=== PATIENT | male | born 1950 | race Caucasian/White ===

== ENCOUNTER → 2024-02-06 06:22 | Day surgery (SDC) | payer MEDICARE, SELFPAY | LOC: GI 06:22 | PROVIDERS: ATTENDING PHYSICIAN Internal Medicine Gastroenterology; FAMILY PHYSICIAN Internal Medicine | DX: Z12.11 Encounter for screening for malignant neoplasm of colon (principal); K57.30 Diverticulosis of large intestine without perforation or abscess without bleeding; K64.8 Other hemorrhoids; Z80.0 Family history of malignant neoplasm of digestive organs; Z83.719 Family history of colon polyps, unspecified; K63.5 Polyp of colon | CPT/HCPCS: 45385; 88305 ==